=== PATIENT | female | born 1955 | race Caucasian/White ===

== ENCOUNTER 2017-02-12 16:21 | Emergency (ER) | payer BC ==
[2017-02-12 16:28] VITALS: BMI 29.7
--- NOTE | 2017-02-12 18:09 | C.PDOC ---
History Of Present Illness 61 year old patient presents to the ED complaining of right knee pain that started last week. Patient was seen by her orthopedist 3 days ago. She had an x- ray done and was told she has mild arthritis and ordered MRI. Patient has been taking Naproxen, but the pain is persistent. Patient denies traumatic injury, fever, numbness, or weakness. Time Seen by Provider: 02/12/17 17:51 Chief Complaint (Nursing): Lower Extremity Problem/Injury History Per: Patient History/Exam Limitations: no limitations Onset/Duration Of Symptoms: Other (a week) Current Symptoms Are (Timing): Still Present Severity: Mild Pain Scale Rating Of: 3 Recent travel outside of the [place]: No Past Medical History Reviewed: Historical Data, Nursing Documentation, Vital Signs Vital Signs: Last Vital Signs Temp 98.2 F 02/12/17 18:55 Pulse 85 02/12/17 18:55 Resp 16 02/12/17 18:55 BP 133/78 02/12/17 18:55 Pulse Ox 96 02/12/17 19:42 Family History: States: Unknown Family Hx - Social History Hx Tobacco Use: No Hx Alcohol Use: Yes Hx Substance Use: No Review Of Systems Except As Marked, All Systems Reviewed And Found Negative. Constitutional: Negative for: Fever Musculoskeletal: Positive for: Other (right knee pain ) Neurological: Negative for: Weakness, Numbness Physical Exam - Physical Exam Appears: Non-toxic, No Acute Distress Skin: Warm, Dry Head: Atraumatic, Normacephalic Eye(s): bilateral: Normal Inspection, EOMI Nose: Normal Oral Mucosa: Moist Neck: Normal ROM, Supple Chest: Symmetrical Respiratory: No Accessory Muscle Use Back: Normal Inspection Extremity: Normal ROM, No Calf Tenderness, No Deformity, Other (righ tknee: medial aspect tenderness with full ROM, no calf tenderness, normal sensation and motor) Pulses: Left Dorsalis Pedis: Normal, Right Dorsalis Pedis: Normal Neurological/Psych: Oriented x3, Normal Motor, Normal Sensation Gait: Steady ED Course And Treatment O2 Sat by Pulse Oximetry: 96 (RA) Pulse Ox Interpretation: Normal Progress Note: Plan: -Toradol. -Ultram. -Reassess and disposition. Knee brace applied by airborne weapons technical manager. Crutches were offered, but patient refused. Patient is instructed to follow up with her orthopedist and get her MRI done as scheduled. Disposition - Disposition Disposition: HOME/ ROUTINE Disposition Time: 18:07 Condition: STABLE Additional Instructions: Follow up with your orthopedist as scheduled. Rest, ice, and elevate the area. Return to ER if symptoms persist or worsen. Prescriptions: Naproxen [Naprosyn] 1 tab PO BID PRN #20 tab PRN Reason: Pain traMADol [Ultram] 50 mg PO Q8 #20 tab Instructions: Knee Pain (ED) - Clinical Impression Clinical Impression: Knee pain, acute - PA / SHIFT MANAGER / Resident Statement MD/DO has reviewed & agrees with the documentation as recorded. - Scribe Statement The provider has reviewed the documentation as recorded by the Scribe Tennille Price All medical record entries made by the Scribe were at my direction and personally dictated by me. I have reviewed the chart and agree that the record accurately reflects my personal performance of the history, physical exam, medical decision making, and the department course for this patient. I have also personally directed, reviewed, and agree with the discharge instructions and disposition.
[2017-02-12 18:56] VITALS: BP 133/78; PULSE 85; RESP 16; TEMP 98.2; O2SAT 96
== END 2017-02-12 18:56 | disposition home or self-care (01) ==
LOC: C.ER 16:21
DX: M25.561 Pain in right knee (principal)
CPT/HCPCS: 96372; 99284; J1885

== ENCOUNTER 2017-10-31 08:28 | Emergency (ER) | payer BC ==
[2017-10-31 08:52] VITALS: RESP 20; TEMP 98.4; BMI 27.8
[2017-10-31] MEDS ORDERED: Naproxen 550 mg Tab PO STA (09:12)
[2017-10-31] MEDS ORDERED: Naproxen 550 mg Tab PO ONE (09:24)
--- NOTE | 2017-10-31 09:51 | RAD ---
PROCEDURE: Right Knee Radiographs. HISTORY: Right knee pain COMPARISON: 01/14/2016. FINDINGS: BONES: Bone alignment and mineralization are normal. No acute fracture. JOINTS: There is mild degenerative osteoarthrosis in the medial compartment with mild reduced joint space, marginal spurring and tibial spiking. JOINT EFFUSION: There is a small suprapatellar joint effusion. OTHER FINDINGS: None. IMPRESSION: Mild degenerative osteoarthrosis in the medial compartment. Small suprapatellar joint effusion.
--- NOTE | 2017-10-31 10:16 | C.PDOC ---
History Of Present Illness 62-year-old female, presents to the emergency department with complaints of pain to the right knee x2 weeks. States she felt a really sharp pain last night while at work, resulting in her coming to the ED for evaluation. Denies numbness /weakness, trauma/fall, or any other associated symptoms. No other complaints at this time. Time Seen by Provider: 10/31/17 09:02 Chief Complaint (Nursing): Lower Extremity Problem/Injury History Per: Patient History/Exam Limitations: no limitations Onset/Duration Of Symptoms: Days Current Symptoms Are (Timing): Still Present Severity: Moderate Past Medical History Reviewed: Historical Data, Nursing Documentation, Vital Signs Vital Signs: Last Vital Signs Temp 98.4 F 10/31/17 08:46 Pulse 85 10/31/17 10:26 Resp 20 10/31/17 10:26 BP 125/74 10/31/17 10:26 Pulse Ox 97 10/31/17 10:29 Family History: States: No Known Family Hx - Social History Hx Tobacco Use: No Hx Alcohol Use: No Hx Substance Use: No - Immunization History Hx Tetanus Toxoid Vaccination: No Hx Influenza Vaccination: No Hx Pneumococcal Vaccination: No Review Of Systems Constitutional: Negative for: Fever, Chills Musculoskeletal: Positive for: Leg Pain (R KNEE) Neurological: Negative for: Weakness, Numbness Physical Exam - Physical Exam Appears: Non-toxic, No Acute Distress Skin: Warm, Dry, No Rash Neck: Normal ROM Extremity: Tenderness (Patella R knee, mild. No erythema/warmth), No Calf Tenderness, Capillary Refill (<2 seconds), No Deformity, No Swelling Neurological/Psych: Oriented x3, Normal Speech ED Course And Treatment O2 Sat by Pulse Oximetry: 97 (on RA) Pulse Ox Interpretation: Normal - Other Rad XR R KNEE X-Ray: Viewed By Me, Read By Radiologist (Mild degenerative osteoarthrosis in the medial compartment. Small suprapatellar joint effusion.) Progress Note: XR R Knee ordered and reviewed. Patient treated with PO Naproxen for pain. Patients pain has improved. Knee will be placed in gaurav bandage and she will be discharged to f/u outpatient with ortho. All questions answered. Disposition Counseled Patient/Family Regarding: Studies Performed, Diagnosis, Need For Followup, Rx Given - Disposition Referrals: Feng Moreau III, MD [Staff Provider] - [facility] [Outside] Disposition: HOME/ ROUTINE Disposition Time: 10:15 Condition: STABLE Additional Instructions: SEGUIMIENTO CON MELENDEZ ORTOPEDIA DENTRO DE 1 SEMANA USE MEDICAMENTOS SEGN LO INDICADO REGRESE AL RANI DE EMERGENCIA SI LOS SNTOMAS EMPEORAN Prescriptions: Naproxen [Naprosyn] 1 tab PO BID PRN #25 tab PRN Reason: Pain Instructions: Osteoarthritis (ED), Knee Pain (ED) Forms: [employer] (Montenegrin), Work Excuse Print Language: MOROCCAN - Clinical Impression Clinical Impression: Arthritis of right knee - Scribe Statement The provider has reviewed the documentation as recorded by the Scribe (Arjun Neal) All medical record entries made by the Scribe were at my direction and personally dictated by me. I have reviewed the chart and agree that the record accurately reflects my personal performance of the history, physical exam, medical decision making, and the department course for this patient. I have also personally directed, reviewed, and agree with the discharge instructions and disposition.
[2017-10-31 10:27] VITALS: BP 125/74; PULSE 85
[2017-10-31 10:29] VITALS: O2SAT 97
== END 2017-10-31 10:27 | disposition home or self-care (01) ==
LOC: C.ER 08:28
DX: M17.11 Unilateral primary osteoarthritis, right knee (principal)

== ENCOUNTER 2019-03-08 23:05 | Emergency (ER) | payer BC | END 2019-03-09 01:35 | disposition home or self-care (01) | LOC: C.ER 23:05 ==